=== PATIENT | female | born 1960 | race Caucasian/White ===

== ENCOUNTER 2016-11-08 21:35 | Emergency (ER) | payer BC ==
[2016-11-08 22:03] VITALS: BP 147/70
[2016-11-08] MEDS ORDERED: cefTRIAXone VIAL(*) 1,000 MG VIAL IM ONE (22:59)
[2016-11-08] MEDS ORDERED: HYDROcodone/ACETAMIN 5-325 MG* 1 TAB PO ONE (23:11)
[2016-11-08] MEDS ORDERED: Lidocaine 1% MPF* 2 ML VIAL ONE (23:26)
[2016-11-08] MEDS ORDERED: HYDROcodone/ACETAMIN 5-325 MG* 1 TAB ONE (23:26)
--- NOTE | 2016-11-09 00:20 | UC ---
Rubén Burleson Adam, scribed for Lois Longo DO on 11/08/16 at 2252 . Upper Extremity HPI - HPI Summary HPI Summary: Pt is a 55 year old female presenting with a red and painful cyst on her right middle finger. She has had a synovial cyst on the finger for years which opens up periodically. This time when it opened up a few days ago she did not cover it immediately and she is concerned about infection. She states that the redness , swelling and pain have been increasing, particularly in the past few hours. She states that the cyst is more elevated and more painful than it ever has been in the past. She denies fever, chills, CP, SOB, rash, DEVLIN, N/V/D, abdominal pain, and cough. PMHx of Graves disease. No Hx of gout. - History of Current Complaint Chief Complaint: UCUpperExtremity Stated Complaint: FINGER COMPLAINT Time Seen by Provider: 11/08/16 22:45 Hx Obtained From: Patient Hx Last Menstrual Period: n/a Onset/Duration: Gradual Onset, Lasting Days, Still Present Severity Initially: Mild Severity Currently: Moderate Pain Intensity: 8 Pain Scale Used: 0-10 Numeric Location Of Pain: Is Discrete @ - Right middle finger Aggravating Factor(s): Movement Alleviating Factor(s): Nothing Associated Signs And Symptoms: Positive: Swelling, Redness. Negative: Bruising , Fever, Weakness, Numbness/Tingling - Allergies/Home Medications Allergies/Adverse Reactions: Allergies Allergy/AdvReac Type Severity Reaction Status Date / Time No Known Allergies Allergy Verified 11/08/16 22:03 Home Medications: Home Medications Imipramine (NF) 10 mg PO BEDTIME 11/08/16 [History Confirmed 11/08/16] Melatonin 0.5 mg PO BEDTIME 11/08/16 [History Confirmed 11/08/16] PMH/Surg Hx/FS Hx/Imm Hx Endocrine History Of: Reports: Thyroid Disease - graves Denies: Diabetes Cardiovascular History Of: Denies: Cardiac Disorders, Hypertension Respiratory History Of: Denies: COPD, Asthma GI/ History Of: Denies: Ulcer - Surgical History Surgical History: Yes Surgery Procedure, Year, and Place: partial thyroidectomy 1991. c section 1990 - Family History Known Family History: Negative: Cardiac Disease, Hypertension, Diabetes Family History: "No" (per pt) - Social History Occupation: Employed Full-time Lives: With Family - Alcohol Use: Occasionally Substance Use Type: None Smoking Status (MU): Never Smoked Tobacco Review of Systems Constitutional: Negative Skin: Other - Red cyst on right middle finger Eyes: Negative ENT: Negative Respiratory: Negative Cardiovascular: Negative Gastrointestinal: Negative Genitourinary: Negative Motor: Negative Neurovascular: Negative Musculoskeletal: Edema - Right middle finger, Myalgia - Right middle finger Neurological: Negative Psychological: Negative All Other Systems Reviewed And Are Negative: Yes Physical Exam Triage Information Reviewed: Yes Appearance: Well-Appearing, No Pain Distress, Well-Nourished Vital Signs: Initial Vital Signs Temp 98.6 F 11/08/16 21:55 Pulse 90 11/08/16 21:55 Resp 16 11/08/16 21:55 BP 147/70 11/08/16 21:55 Pulse Ox 100 11/08/16 21:55 Vital Signs Reviewed: Yes Eyes: Positive: Conjunctiva Clear. Negative: Discharge ENT: Positive: Hearing grossly normal. Negative: Muffled/hoarse voice Neck exam: Normal Neck: Positive: Supple Respiratory: Positive: Lungs clear, Normal breath sounds, No respiratory distress, No accessory muscle use Cardiovascular: Positive: RRR, No Murmur Abdomen Description: Positive: Nontender, Soft. Negative: CVA Tenderness (R), CVA Tenderness (L), Distended, Guarding Bowel Sounds: Positive: Present Musculoskeletal: Positive: Other: - Tenderness at site of cyst on right middle finger. Circumferential redness, tenderness and swelling of dip on middle finger Neurological: Positive: Alert, Muscle Tone Normal Psychological Exam: Normal Psychological: Positive: Age Appropriate Behavior Skin: Positive: Other - Redness and swelling of right middle finger Upper Extremity Course/Dx - Differential Dx/Diagnosis Differential Diagnosis/HQI/PQRI: Arthritis, Septic Arthritis, Other - paronychia , cellulitis, wound infection Provider Diagnoses: Septic arthritis Discharge - Discharge Plan Condition: Stable Disposition: HOME Prescriptions: Cephalexin CAP* [Keflex CAP*] 500 mg PO BID #20 cap HYDROcodone/ACETAMIN 5-325 MG* [[place] 5-325 TAB*] 1 tab PO Q6H PRN #6 tab MDD 4 TABS PRN Reason: Pain Patient Education Materials: Septic Arthritis (GEN) Referrals: Nikita Chacko MD [Medical Doctor] - 1 Day (follow up tomorrow) Non Staff,Doctor [Primary Care Provider] - If Needed Additional Instructions: ROCEPHIN: You have been given an injection of an antibiotic called Rocephin ( ceftriaxone). Sometimes the injection must be combined with antibiotic pills. For some infections, such as an uncomplicated ear infection, Rocephin provides all the antibiotic that's needed. The antibiotic will be in your body for about two days. For serious infections, we usually repeat doses of Rocephin daily. Side effects are very unusual following a shot. Women may develop vaginal yeast infections, and babies can get yeast (thrush) in the mouth following the use of antibiotics. Contact your physician if you have symptoms with this medication. Allergy to this antibiotic can result in hives, wheezing, faintness, or itching. If symptoms of allergy occur, call the doctor at once. CEPHALEXIN: The antibiotic you've been prescribed is a member of the cephalosporin class. This type of antibiotic covers a wide variety of infections, including those of the skin, lungs, and urinary tract. It's useful for staph infections. This antibiotic is slightly similar to the penicillin family. In rare cases , a person who is allergic to penicillin will also be allergic to this medication. If you have had a severe allergic reaction to penicillin, and have not taken this antibiotic since that time, notify your doctor. Antibiotics which cover many germs ("broad spectrum" antibiotics) are more likely to cause diarrhea or "yeast" infections. Women prone to vaginal yeast problems may suffer an attack after taking this antibiotic. In infants, oral thrush (white spots "stuck" on the cheek) or yeast diaper rash may result. See your doctor if these problems occur. Call at once if you develop itching, hives , shortness of breath, or lightheadedness. ANY TIME YOU TAKE AN ANTIBIOTIC, IT IS IMPORTANT TO REPLENISH THE BODY'S BALANCE OF "GOOD" BACTERIA BY EATING HIGH QUALITY CULTURED FOOD SUCH YOGURT, SAURKRAUT OR NURIS CHI AND/OR TAKING A PROBIOTIC SUPPLEMENT. ORAL NARCOTIC MEDICATION: You have been given a prescription for pain control. This medication is a narcotic. It's best taken with food, as nausea can result if taken on an empty stomach. Don't operate machinery or drive within six hours of taking this medication. Do not combine this medicine with alcohol, or with any medication which can cause sedation (such as cold tablets or sleeping pills) unless you get permission from the physician. Narcotics tend to cause constipation. If possible, drink plenty of fluids and eat a diet high in fiber and fruits. The documentation as recorded by the scribeRubén Adam accurately reflects the service I personally performed and the decisions made by me, Lois Longo DO.
[2016-11-09 10:32] LABS: Hematocrit 45 % (35-47); Hemoglobin 14.9 g/dl (12.0-16.0); Mean Corpuscular HGB Conc 33 g/dl (31-36); Mean Corpuscular Hemoglobin 29 pg (27-31); Mean Corpuscular Volume 89 fL (80-97); Mean Platelet Volume 9 um3 (7.4-10.4); Red Blood Count 5.08 10^6/ul (4.0-5.4); Red Cell Distribution Width 14 % (10.5-15); White Blood Count 14.4 10^3/ul (3.5-10.8)
[2016-11-09 12:06] LABS: Erythrocyte Sed Rate 21 mm/Hr (0-30)
== END 2016-11-08 23:45 | disposition home or self-care (01) ==
LOC: UCEAST 21:35
DX: M00.9 Pyogenic arthritis, unspecified (principal); E05.00 Thyrotoxicosis with diffuse goiter without thyrotoxic crisis or storm
CPT/HCPCS: 36415; 85025; 85652; 86141; 87040; 96372; 99202; G0463; J0696

== ENCOUNTER 2016-11-09 09:42 | Emergency (ER) | payer BC ==
[2016-11-09] MEDS ORDERED: Sulfamethox/Trimethoprim DS 800/160* TAB PO ONE (15:44)
[2016-11-09] MEDS ORDERED: oxyCODONE/Acetamin 5/325 MG* TAB PO ONE (16:10)
[2016-11-09 16:33] VITALS: BP 130/77
--- NOTE | 2016-11-11 16:14 | ED ---
Lesia Burleson Matthew, scribed for Carlos Maguire MD on 11/09/16 at 1053 . Skin Complaint - HPI Summary HPI Summary: A 55 y/o female presents to the ED with a mass on the right 3rd finger. The mass has been there for years and she states the mass occasionally drains clear fluids. However, yesterday she noticed swelling, pain, and thick clear drainage. The patient denies trauma and fever. Her pain is worse with movement of the joint. The patient was seen at [facility] yesterday and was given a shot of Rocephin and PO keflex and norco. Since yesterday, the pain as partial alleviated, but the swelling as increased and moved down the finger . Today she states that she tried to schedule a follow-up appointment with ortho and was referred to the ED by the orthopedics office. - History of Current Complaint Chief Complaint: EDRashSkinAbscess Time Seen by Provider: 11/09/16 10:17 Stated Complaint: RT HAND-FINGER PAIN/SWELLING Hx Obtained From: Patient Hx Last Menstrual Period: n/a Onset/Duration: Atraumatic, Still Present Timing: Constant Onset Severity: Moderate Current Severity: Moderate Skin Location: Hand - right middle figner Character: Pain, Redness Aggravating Symptom(s): Other: - Movement Alleviating Symptom(s): Nothing Associated Signs & Symptoms: Drainage - clear fluid, Tenderness, Joint Swelling - Allergy/Home Medications Allergies/Adverse Reactions: Allergies Allergy/AdvReac Type Severity Reaction Status Date / Time No Known Allergies Allergy Verified 11/09/16 09:45 PMH/Surg Hx/FS Hx/Imm Hx Endocrine/Hematology History: Reports: Hx Thyroid Disease - graves Denies: Hx Diabetes Cardiovascular History: Denies: Hx Hypertension Respiratory History: Denies: Hx Asthma, Hx Chronic Obstructive Pulmonary Disease (COPD) GI History: Denies: Hx Ulcer - Surgical History Surgery Procedure, Year, and Place: partial thyroidectomy 1991. c section 1990 Infectious Disease History: Denies: Hx Hepatitis, Hx Human Immunodeficiency Virus (HIV), Hx Shingles, Hx Tuberculosis, Traveled Outside the [place] in Last 30 Days - Family History Known Family History: Negative: Cardiac Disease, Hypertension, Diabetes Family History: "No" (per pt) - Social History Alcohol Use: Occasionally Substance Use Type: Reports: None Smoking Status (MU): Never Smoked Tobacco Review of Systems Constitutional: Negative Negative: Fever, Chills Eyes: Negative Negative: Erythema ENT: Negative Negative: Sore Throat Cardiovascular: Negative Negative: Chest Pain Respiratory: Negative Negative: Shortness Of Breath Gastrointestinal: Negative Genitourinary: Negative Negative: dysuria, hematuria Positive: Myalgia - right 3rd finger , Edema - right 3rd finger Skin: Other - right 3rd finger mass Negative: Rash Neurological: Negative Negative: Headache Psychological: Normal All Other Systems Reviewed And Are Negative: Yes Physical Exam Triage Information Reviewed: Yes Vital Signs On Initial Exam: Initial Vitals Temp Pulse Resp BP Pulse Ox 97.3 F 102 17 139/77 99 11/09/16 09:45 11/09/16 09:45 11/09/16 09:45 11/09/16 09:45 11/09/16 09:45 Vital Signs Reviewed: Yes Appearance: Positive: No Pain Distress, Well-Nourished Skin: Positive: Other - Erythema of the fingertip up to the proximal interphalangeal joint. Theres erythema, fluctuance, and open ulceration just proximal to the eponychia fold. Afelon. No herpetic clayton, no vesicles, paronychia not suspected Head/Face: Positive: Other - Normocephalic; Atraumatic Eyes: Positive: Conjunctiva Clear Dental: Negative: Cervical Lymphadenopathy Neck: Positive: Supple, No Lymphadenopathy Respiratory/Lung Sounds: Positive: Breath Sounds Present, Other - Normal Effort. Negative: Rales, Stridor, Tracheal Deviation, Wheezes Cardiovascular: Positive: Tachycardia. Negative: Murmur Abdomen Description: Positive: Nontender, Soft, Other: - No Rebound. Negative: Distended, Guarding Musculoskeletal: Negative: Edema Left, Edema Right Neurological: Positive: Alert, Oriented to Person Place, Time Psychiatric: Positive: Affect/Mood Appropriate Procedures - Procedure Summary Procedure Summary: Initially,the paronychial fold with elevated with bloody drainage and minimal purulent discharge. Then with an 11 blade a superficial cut was made along the surface of the skin at the dorsal midline of the finger approximately 3mm in length. Blunt dissection with blunt forceps. Minimal purulent drainage. A wick was inserted into the incision site. - Incision and Drainage Site: Right Middle Finger Anesthesia: Digital - Digital Block w/ 1% lidocaine Instrument(s): Scalpel, Other - Foreceps Diagnostics - Vital Signs Vital Signs Temp Pulse Resp BP Pulse Ox 11/09/16 09:45 97.3 F 102 17 139/77 99 - Laboratory Lab Statement: Any lab studies that have been ordered have been reviewed, and results considered in the medical decision making process. Course/Dx - Course Assessment/Plan: A 55 y/o female presents to the ED with a mass on the right 3rd finger. Consulted with Dr. Bailey who recommended I&D and follow-up with his office. The incision and drainage was preformed according to the note above. Minimal purulent drainage was noted. The patients Abx coverage will be increased and she will follow-up with Dr. Arambula office next week. - Diagnoses Provider Diagnoses: Cellulitis, finger - Physician Notifications Discussed Care Of Patient With: Dr. Bailey ([facility]) at 13:35 -- Notified of patient's history and request the site be incised and drained by the ED physician. Dr. Bailey ([facility]) at 16:01 -- He states that the risk of a sceptic join is very low and in the unlikely scenarios that it is sceptic he could do a wash out this weekend. He agreed with increasing Abx coverage. He also requested a wick be placed in the incision site. Discharge - Discharge Plan Condition: Stable Disposition: HOME Prescriptions: Sulfamethox/Trimethoprim DS* [Bactrim DS 800/160 TAB*] 1 tab PO BID #20 tab Patient Education Materials: Cellulitis (ED) Referrals: Lc Bailey MD [Medical Doctor] - 4 Days Additional Instructions: Please follow-up with Dr. Bailey next week. The documentation as recorded by the Lesia raya Matthew accurately reflects the service I personally performed and the decisions made by , Carlos Maguire MD.
== END 2016-11-09 16:32 | disposition home or self-care (01) ==
LOC: ED 09:42
DX: L03.011 Cellulitis of right finger (principal); R60.0 Localized edema
CPT/HCPCS: 10060; 99282; A9270-GY